=== PATIENT | male | born 1970 | race Hispanic/Latino ===

== ENCOUNTER 2020-05-31 18:55 | Emergency (ER) | payer BC ==
[~2020-05-31] VITALS: Ht 167.6 cm; Wt 93.0 kg
[2020-05-31] MEDS ORDERED: HYDROCODON-ACE1 EA10 PO (19:44)
[2020-05-31] MEDS ORDERED: CLEOCIN HCL300 MG PO (19:44)
== END 2020-05-31 19:55 | disposition home or self-care (01) ==
LOC: ED 18:55
DX: K08.89 Other specified disorders of teeth and supporting structures (principal); E11.9 Type 2 diabetes mellitus without complications; I10 Essential (primary) hypertension; E78.00 Pure hypercholesterolemia, unspecified
CPT/HCPCS: 99282